=== PATIENT | male | born 1970 | race Two or more races ===

== ENCOUNTER 2020-01-23 22:06 | Emergency (ER) | payer SELFPAY ==
[~2020-01-23] VITALS: Ht 157.5 cm; Wt 65.8 kg
[2020-01-23 22:11] VITALS: Ht 157.5 cm; Wt 65.8 kg
[2020-01-23 23:12] VITALS: BP 179/100
== END 2020-01-23 23:12 | disposition home or self-care (01) ==
LOC: ED 22:06
DX: M25.572 Pain in left ankle and joints of left foot (principal)
CPT/HCPCS: Q0092